=== PATIENT | female | born 2000 | race Caucasian/White ===

== ENCOUNTER 2024-12-23 20:20 | Emergency (ER) | payer MEDICAID ==
[~2024-12-23] VITALS: Ht 172.7 cm; Wt 86.0 kg
[2024-12-23 20:45] VITALS: O2SAT 99
[2024-12-23] MEDS ORDERED: ACETAMINOPHEN 325MG TABLET PO ONE (21:15)
[2024-12-23 21:54] LABS: CLARITY URINE CLEAR (CLEAR); COLOR URINE YELLOW (YELLOW); GLUCOSE URINE NEGATIVE (NEGATIVE); KETONES URINE NEGATIVE (NEGATIVE); LEUKOCYTE ESTERASE URINE NEGATIVE (NEGATIVE); NITRITE URINE NEGATIVE (NEGATIVE); OCCULT BLOOD URINE NEGATIVE (NEGATIVE); PH URINE 5.5 (4.5-8.0); PROTEIN URINE NEGATIVE (NEGATIVE); UROBILINOGEN URINE 0.2 E.U./dL (0.2-1.0)
[2024-12-23 22:41] LABS: CHLORIDE 106 mEq/L (98-107); POTASSIUM 4.2 mEq/L (3.5-5.1); SODIUM 142 mEq/L (136-145)
[2024-12-23 22:42] LABS: CARBON DIOXIDE 26 mEq/L (21-32)
[2024-12-23 22:43] LABS: BASOPHILS % 0.5 % (0.0-2.0); EOSINOPHILS % 1.7 % (0.0-5.0); HEMATOCRIT. 39.6 % (36.0-48.0); HEMOGLOBIN. 13.2 g/dL (12.0-16.0); LYMPHOCYTES % 28.9 % (20.0-50.0); MEAN CORPUSCULAR HGB CONC 33.4 g/dL (31.0-37.0); MEAN CORPUSCULAR VOLUME 89.7 fL (81.0-99.0); MEAN PLATELET VOLUME 9.2 fl (7.4-10.4); MONOCYTES % 10.6 % (2.0-8.0); NEUTROPHILS % 58.3 % (40.0-76.0); PLATELET 294 x1000/uL (130-400); RED BLOOD CELL COUNT 4.41 mill/uL (4.2-5.4); RED CELL DISTRIBUTION WIDTH 12.4 % (11.6-14.6); WHITE BLOOD COUNT 9.2 x1000/uL (4.5-11.0)
[2024-12-23 22:47] LABS: CREATININE 0.8 mg/dL (0.6-1.0); GLUCOSE 93 mg/dL (70-105)
[2024-12-23 22:48] LABS: B-HCG QUANTITATIVE 17 mIU/mL (<6); UREA NITROGEN BLOOD 5 mg/dL (9-23)
[2024-12-23 22:49] LABS: ALANINE AMINOTRANSFERASE 25 IU/L (10-49); ALBUMIN 4.7 g/dL (3.2-4.8); ASPARTATE AMINOTRANSFERASE 22 IU/L (<34)
[2024-12-23 22:50] LABS: BILIRUBIN TOTAL 0.3 mg/dL (0.1-1.0); PROTEIN TOTAL 7.2 g/dL (6.0-8.3)
[2024-12-23 22:53] LABS: HCG SCREEN POSITIVE
[2024-12-23] MEDS ORDERED: TOPUD MT (23:27)
[2024-12-23 23:45] VITALS: BP 111/64; PULSE 72; RESP 16; TEMP 36.6; O2SAT 99
== END 2024-12-23 23:49 | disposition home or self-care (01) ==
LOC: ER 20:20
DX: O20.0 Threatened abortion (principal)
CPT/HCPCS: 36415; 76801; 80053; 81003; 84702; 84703; 85025; 86850; 86900; 99284

== ENCOUNTER 2025-07-01 23:55 | Emergency (ER) | payer MEDICAID ==
[~2025-07-01] VITALS: Ht 165.1 cm; Wt 85.5 kg
[~2025-07-01 23:55] MED LIST: TOPUD MT
[2025-07-02 00:04] VITALS: O2SAT 98
[2025-07-02 01:28] LABS: BASOPHILS % 0.6 % (0.0-2.0); EOSINOPHILS % 2.5 % (0.0-5.0); HEMATOCRIT. 37.7 % (36.0-48.0); HEMOGLOBIN. 12.5 g/dL (12.0-16.0); LYMPHOCYTES % 25.9 % (20.0-50.0); MEAN PLATELET VOLUME 9.4 fl (7.4-10.4); MONOCYTES % 8.3 % (2.0-8.0); NEUTROPHILS % 62.7 % (40.0-76.0); PLATELET 287 x1000/uL (130-400); RED BLOOD CELL COUNT 4.22 mill/uL (4.2-5.4); RED CELL DISTRIBUTION WIDTH 12.8 % (11.6-14.6)
[2025-07-02] MEDS: SODIUM CHLORIDE 0.9% 1,000 ML IV ONE (01:28)
[2025-07-02 01:49] LABS: CREATININE 0.7 mg/dL (0.6-1.0); UREA NITROGEN BLOOD 8 mg/dL (9-23)
[2025-07-02 01:50] LABS: B-HCG QUANTITATIVE 125 mIU/mL (<6)
[2025-07-02 01:51] LABS: ASPARTATE AMINOTRANSFERASE 25 IU/L (<34); BILIRUBIN DIRECT < 0.1 mg/dL (<=3.0); BILIRUBIN TOTAL 0.2 mg/dL (0.1-1.0)
[2025-07-02 01:52] LABS: PROTEIN TOTAL 6.7 g/dL (6.0-8.3)
[2025-07-02 02:42] LABS: CLARITY URINE CLEAR (CLEAR); COLOR URINE YELLOW (YELLOW); GLUCOSE URINE NEGATIVE (NEGATIVE); KETONES URINE NEGATIVE (NEGATIVE); LEUKOCYTE ESTERASE URINE TRACE (NEGATIVE); NITRITE URINE NEGATIVE (NEGATIVE); OCCULT BLOOD URINE NEGATIVE (NEGATIVE); PH URINE 5.5 (4.5-8.0); PROTEIN URINE NEGATIVE (NEGATIVE); SPECIFIC GRAVITY URINE 1.010 (1.005-1.030); UROBILINOGEN URINE 0.2 E.U./dL (0.2-1.0)
[2025-07-02 03:03] LABS: SQUAMOUS EPITHELIAL CELL URINE FEW /lpf (RARE/1+)
[2025-07-02 03:05] LABS: BACTERIA URINE NONE SEEN; RBC URINE 0-2 /hpf (0-2); WBC URINE 0-2 /hpf (0-2)
[2025-07-02 03:30] VITALS: BP 109/57; PULSE 71; RESP 19; TEMP 36.7; O2SAT 100
== END 2025-07-02 03:30 | disposition home or self-care (01) ==
LOC: ER 23:55
DX: R10.20 Pelvic and perineal pain unspecified side (principal); Z87.59 Personal history of other complications of pregnancy, childbirth and the puerperium
CPT/HCPCS: 99284; 96360; 76856; 80076; 80048; 81003; 84702; 85025; 86850; 86900; 86901; 36415; J7030

== ENCOUNTER 2025-07-12 21:42 | Emergency (ER) | payer MEDICAID ==
[~2025-07-12] VITALS: Ht 167.6 cm; Wt 85.0 kg
[2025-07-12 21:48] VITALS: TEMP 36.8; O2SAT 100
[2025-07-12 22:08] LABS: CLARITY URINE CLEAR (CLEAR); COLOR URINE YELLOW (YELLOW); GLUCOSE URINE NEGATIVE (NEGATIVE); KETONES URINE TRACE (NEGATIVE); LEUKOCYTE ESTERASE URINE 1+ (NEGATIVE); NITRITE URINE NEGATIVE (NEGATIVE); OCCULT BLOOD URINE NEGATIVE (NEGATIVE); PH URINE 5.5 (4.5-8.0); PROTEIN URINE NEGATIVE (NEGATIVE); SPECIFIC GRAVITY URINE 1.029 (1.005-1.030); UROBILINOGEN URINE 1.0 E.U./dL (0.2-1.0)
[2025-07-12 22:19] LABS: BACTERIA URINE TRACE; RBC URINE 0-2 /hpf (0-2); SQUAMOUS EPITHELIAL CELL URINE FEW /lpf (RARE/1+)
[2025-07-12 23:48] LABS: BASOPHILS % 0.6 % (0.0-2.0); EOSINOPHILS % 2.1 % (0.0-5.0); HEMATOCRIT. 39.1 % (36.0-48.0); HEMOGLOBIN. 12.7 g/dL (12.0-16.0); LYMPHOCYTES % 25.6 % (20.0-50.0); MEAN PLATELET VOLUME 9.6 fl (7.4-10.4); MONOCYTES % 8.1 % (2.0-8.0); NEUTROPHILS % 63.6 % (40.0-76.0); PLATELET 251 x1000/uL (130-400); RED BLOOD CELL COUNT 4.34 mill/uL (4.2-5.4); RED CELL DISTRIBUTION WIDTH 13.0 % (11.6-14.6)
[2025-07-13 00:02] LABS: INR 1.0
[2025-07-13 00:04] LABS: CREATININE 0.7 mg/dL (0.6-1.0); UREA NITROGEN BLOOD 5 mg/dL (9-23)
[2025-07-13 00:05] LABS: PROTEIN TOTAL 6.9 g/dL (6.0-8.3)
[2025-07-13 00:06] LABS: ASPARTATE AMINOTRANSFERASE 27 IU/L (<34); BILIRUBIN DIRECT < 0.1 mg/dL (<=3.0); BILIRUBIN TOTAL 0.3 mg/dL (0.1-1.0)
[2025-07-13 00:30] LABS: B-HCG QUANTITATIVE 11622 mIU/mL (<6)
[2025-07-13] MEDS ORDERED: CEPH500C2 MT (01:05)
[2025-07-13 01:15] VITALS: BP 129/83; PULSE 67; RESP 16; O2SAT 100
== END 2025-07-13 01:28 | disposition home or self-care (01) ==
LOC: ER 21:42
DX: O23.41 Unspecified infection of urinary tract in pregnancy, first trimester (principal); N39.0 Urinary tract infection, site not specified; Z55.6 Problems related to health literacy; R10.20 Pelvic and perineal pain unspecified side; Z3A.01 Less than 8 weeks gestation of pregnancy; Z79.899 Other long term (current) drug therapy
CPT/HCPCS: 36415; 76856; 80048; 80076; 81003; 81025; 84702; 85025; 86850; 86900; 99284